=== PATIENT | female | born 1940 | race Caucasian/White ===

== ENCOUNTER 2022-03-16 17:15 | Emergency (ER) | payer MEDICARE, SELFPAY ==
--- NOTE | ~2022-03-16 | CT_ITS ---
EXAM: CT scan of the head and cervical spine. INDICATION: Reason for Exam s/p fall TECHNIQUE: A noncontrast CT scan was performed from the skull base to the vertex. A noncontrast CT scan of the cervical spine was performed from the base of the skull through T1 at 2.5 mm and 1.25 mm collimation. Coronal and sagittal reformats were obtained at the acquisition workstation. This CT examination was performed using dose optimization techniques as appropriate, variously including the following: *Automated exposure control *Adjustment of mA and/or kV according to patient size (this includes techniques or standardized protocols for targeted exams where dose is matched to indication/reason for exam; i.e. extremities or head) *Use of iterative reconstruction technique DLP: 656 and 341 mGy-cm COMPARISON: None FINDINGS: Head: There is no evidence of acute intracranial hemorrhage or territorial infarction. Tai-white matter differentiation is preserved. No abnormal mass effect or midline shift. No extra-axial fluid collections. No abnormal attenuation is demonstrated within the brain parenchyma. Scattered periventricular and deep white matter hypodensities consistent with microangiopathy. The ventricles and sulcal spaces are proportional without hydrocephalus. Proportional prominence of the ventricles and sulcal spaces. No acute osseous or soft tissue abnormalities. The mastoid air cells and visualized portions of the paranasal sinuses are well aerated. Cervical Spine: Motion degradation limits assessment particularly at the C1-C2 level. No gross deformity. Moderately severe spondylosis throughout most notable at C5-C4-C5 C5-C6 where there is severe disc space narrowing. Sclerotic focus left aspect of the vertebral body of C4 most consistent with a bone island. Straightening of the normal cervical lordosis. Otherwise, there is anatomic alignment of the vertebral bodies and posterior elements. No evidence of acute fracture or subluxation. The There is no prevertebral soft tissue swelling. The thyroid gland and remaining cervical soft tissues are normal in appearance. The lung apices demonstrate no abnormalities. CT/CT cervical spine wo con IMPRESSION: No acute intracranial pathology. Limited imaging cervical spine without any gross fracture subluxation. Chronic findings as above.
[2022-03-16 17:41] VITALS: BP 142/84; PULSE 92; O2SAT 97
--- NOTE | 2022-03-16 17:42 | ED.FALL ---
HPI - Fall General Chief Complaint: Fall Stated Complaint: FALL Time Seen by Provider: 03/16/22 17:37 Source: patient and EMS Mode of arrival: EMS Limitations: no limitations History of Present Illness HPI Narrative: Patient with history of hypertension diabetes brought by EMS after mechanical fall. [place] , said that her shoe got stuck and she fell forward hitting her chin and forehead to the ground. No loss of consciousness there were 2 witnesses at the scene also confirm that. Patient did not try to break her fall with hands or anything just hit the head straight patient denies any chest pain or palpitation did not fall for a while no loss of consciousness no seizures patient was able to stand up and ambulate Related Data Allergies Allergy/AdvReac Type Severity Reaction Status Date / Time [id number] Reductase Allergy Unknown Verified 03/16/22 17:43 Inhibitor Review of Systems Review of Systems: Yes all other systems are reviewed and are negative FORMERLY [facility], [facility] Social History Social History Advance Directives: No Advance Directives Information Provided: No Physical Exam Vital Signs: Vital Signs: Last Vital Signs Temp 97.9 F 03/16/22 17:45 Pulse 67 03/16/22 17:45 Resp 18 03/16/22 17:45 BP 141/70 H 03/16/22 17:45 Pulse Ox 95 03/16/22 17:45 O2 Del Method 03/16/22 17:45 BMI result Body Mass Index 30.9 Appearance: Alert. Oriented X3. No acute distress. Eyes: PERRLA, No Nystagmus ENT: Pharynx normal. Oral Mucosa moist bruised chin and forehead, normocephalic Neck: Normal inspection. Neck supple. In cervical collar CVS: Normal heart rate and rhythm. Pulses normal. Respiratory: No respiratory distress. Equal air entry bilateral, no wheezing/rales/rhonchi Abdomen: Soft and nontender. Bowel sounds are present, no mass palpable, no CVA tenderness Skin: Skin warm and dry. Normal skin color. Normal skin turgor. Extremities: No lower extremity edema. No calf tenderness, hips Non tender Neuro: Oriented X 3. No motor deficit. No sensory deficit.No cerebellar signs , cranial nerves II-XII intact MDM - Fall MDM Narrative Medical decision making narrative: Patient status post mechanical fall CT scan of the head C-spine negative for acute patient ambulate in the ER family at the bedside discharge patient home Lab Data Attestation: I reviewed the patient's lab results. Result diagrams: 03/16/22 18:55 03/16/22 18:55 Labs: Lab Results 03/16/22 03/16/22 03/16/22 Range/Units 18:55 18:55 18:55 WBC 6.3 (4.8-10.8) X10*3/uL RBC 3.92 L (4.20-5.50) X10*6/uL Hgb 11.7 L (12.0-16.0) g/dl Hct 34.7 L (37.0-47.0) % MCV 88.5 (80.0-98.0) fL MCH 29.8 (27.0-33.0) pg MCHC 33.7 (31.0-35.0) g/dl RDW 14.1 (11.0-16.0) % Plt Count 121 L (160-400) X10*3/uL MPV 11.9 (9.4-12.3) fL Immature Gran % (Auto) 0.3 (0.0-0.4) % Neut % (Auto) 69.7 (45-73) % Lymph % (Auto) 21.8 (20-40) % [place] % (Auto) 6.0 (2-11) % Eos % (Auto) 1.9 (0-4) % Baso % (Auto) 0.3 (0-2) % Lymph # (Auto) 1.4 (1.2-4.9) X10*3/uL [place] # (Auto) 0.4 (0.1-1.2) X10*3/uL Eos # (Auto) 0.1 (0.0-0.4) X10*3/uL Baso # (Auto) 0.0 (0.0-0.2) X10*3/uL Abs Immat Gran (auto) 0.02 (0.00-0.03) X10*3/uL Absolute Neuts (auto) 4.4 (2.0-8.3) x10*3/uL Absolute Nucleated RBC 0.000 (0.0-0.012) X10*3/uL Nucleated RBC % (auto) 0.0 (0.0-0.2) /100WBC PT 11.2 (10.0-13.1) SEC INR 1.0 (0.9-1.1) Sodium 144 (135-145) mmol/L Potassium 3.9 (3.3-5.1) mmol/L Chloride 109 H (96-108) mmol/L Carbon Dioxide 25 (22-29) mmol/L Anion Gap 14 (12-20) BUN 25 H (9-16) mg/dL Creatinine 1.03 (0.5-1.4) mg/dL Estim Creat Clear Calc 39.6 Estimated GFR 51 Random Glucose 110 (60-115) mg/dL Calcium 9.5 (8.4-10.2) mg/dL Total Bilirubin 0.2 (0.0-1.0) mg/dL AST 20 (5-31) U/L ALT 17 (0-31) U/L Alkaline Phosphatase 71 (39-117) U/L Troponin I High Sens (<3.5-17.0) ng/L Total Protein 5.8 L (6.5-8.0) g/dL Albumin 3.6 (3.5-5.0) g/dL 03/16/22 Range/Units 18:55 WBC (4.8-10.8) X10*3/uL RBC (4.20-5.50) X10*6/uL Hgb (12.0-16.0) g/dl Hct (37.0-47.0) % MCV (80.0-98.0) fL MCH (27.0-33.0) pg MCHC (31.0-35.0) g/dl RDW (11.0-16.0) % Plt Count (160-400) X10*3/uL MPV (9.4-12.3) fL Immature Gran % (Auto) (0.0-0.4) % Neut % (Auto) (45-73) % Lymph % (Auto) (20-40) % [place] % (Auto) (2-11) % Eos % (Auto) (0-4) % Baso % (Auto) (0-2) % Lymph # (Auto) (1.2-4.9) X10*3/uL [place] # (Auto) (0.1-1.2) X10*3/uL Eos # (Auto) (0.0-0.4) X10*3/uL Baso # (Auto) (0.0-0.2) X10*3/uL Abs Immat Gran (auto) (0.00-0.03) X10*3/uL Absolute Neuts (auto) (2.0-8.3) x10*3/uL Absolute Nucleated RBC (0.0-0.012) X10*3/uL Nucleated RBC % (auto) (0.0-0.2) /100WBC PT (10.0-13.1) SEC INR (0.9-1.1) Sodium (135-145) mmol/L Potassium (3.3-5.1) mmol/L Chloride (96-108) mmol/L Carbon Dioxide (22-29) mmol/L Anion Gap (12-20) BUN (9-16) mg/dL Creatinine (0.5-1.4) mg/dL Estim Creat Clear Calc Estimated GFR Random Glucose (60-115) mg/dL Calcium (8.4-10.2) mg/dL Total Bilirubin (0.0-1.0) mg/dL AST (5-31) U/L ALT (0-31) U/L Alkaline Phosphatase (39-117) U/L Troponin I High Sens < 3.5 (<3.5-17.0) ng/L Total Protein (6.5-8.0) g/dL Albumin (3.5-5.0) g/dL ECG Data Attestation: I personally reviewed and interpreted this ECG as follows: Interpretation: sinus bradycardia with heart rate 57 beats per minute left axis deviation, no acute ST T wave changes no acute ischemia Discharge Plan Discharge Clinical Impression: Fall Patient Disposition: Home, Self-Care Instructions: Fall Prevention for Older Adults (ED) Additional Instructions: Local care advised Use cane as needed for ambulation Follow with PCP Interventions: ED Discharge Assessment Last Done: 03/16/22 20:11 Discharge Date/Time: 03/16/22 20:11
--- NOTE | 2022-03-16 17:43 | ECG_ITS ---
Test Reason : ?syncope Blood Pressure : / mmHG Vent. Rate : 057 BPM Atrial Rate : 057 BPM P-R Int : 178 ms QRS Dur : 088 ms QT Int : 440 ms P-R-T Axes : 062 -34 029 degrees QTc Int : 428 ms Sinus bradycardia with sinus arrhythmia Left axis deviation Minimal voltage criteria for LVH, may be normal variant ( R in aVL ) Possible Anterolateral infarct , age undetermined Abnormal ECG No previous ECGs available Referred By: Zeferino Chapman Electronically Signed By:JOSHUA MICHELE
[2022-03-16 17:45] VITALS: BP 141/70; PULSE 67; RESP 18; TEMP 36.6; O2SAT 95; BMI 30.9
[2022-03-16 19:07] LABS: PLT CLUMP 1; SCAN SMEAR FLAG 1
[2022-03-16 19:09] LABS: Basophils Percent Auto 0.3 % (0-2); Eosinophils Absolute Auto 0.1 X10*3/uL (0.0-0.4); Eosinophils Percent Auto 1.9 % (0-4); Hematocrit 34.7 % (37.0-47.0); Hemoglobin 11.7 g/dl (12.0-16.0); Imm Gran Abs Auto 0.02 X10*3/uL (0.00-0.03); Imm Gran Pct Auto 0.3 % (0.0-0.4); Lymphocytes Absolute Auto 1.4 X10*3/uL (1.2-4.9); Lymphocytes Percent Auto 21.8 % (20-40); Mean Corpuscular HGB Conc 33.7 g/dl (31.0-35.0); Mean Corpuscular Hemoglobin 29.8 pg (27.0-33.0); Mean Corpuscular Volume 88.5 fL (80.0-98.0); Mean Platelet Volume 11.9 fL (9.4-12.3); Monocytes Absolute Auto 0.4 X10*3/uL (0.1-1.2); Neutrophils Absolute Auto 4.4 x10*3/uL (2.0-8.3); Neutrophils Percent Auto 69.7 % (45-73); Red Blood Count 3.92 X10*6/uL (4.20-5.50); Red Cell Distribution Width 14.1 % (11.0-16.0)
[2022-03-16 19:10] LABS: MANUAL DIFF FLAG NO; Platelet Count 121 X10*3/uL (160-400); White Blood Count 6.3 X10*3/uL (4.8-10.8)
[2022-03-16 19:11] LABS: Prothrombin Time 11.2 SEC (10.0-13.1)
[2022-03-16 19:21] LABS: Alanine Aminotransferase 17 U/L (0-31); Albumin Level 3.6 g/dL (3.5-5.0); Alkaline Phosphatase 71 U/L (39-117); Anion Gap 14 (12-20); Aspartate Amino Transferase 20 U/L (5-31); Bilirubin Total 0.2 mg/dL (0.0-1.0); Blood Urea Nitrogen 25 mg/dL (9-16); Calcium 9.5 mg/dL (8.4-10.2); Carbon Dioxide 25 mmol/L (22-29); Chloride 109 mmol/L (96-108); Creatinine Clr Calc Pharmacy 39.6; Estimated Glomerular Filt Rate 51; Glucose Random 110 mg/dL (60-115); Potassium 3.9 mmol/L (3.3-5.1); Sodium 144 mmol/L (135-145); Total Protein 5.8 g/dL (6.5-8.0)
[2022-03-16 19:28] LABS: Troponin-I High Sensitivity < 3.5 ng/L (<3.5-17.0)
== END 2022-03-16 20:11 | disposition home or self-care (01) ==
LOC: HO.ED 20:10
PROVIDERS: Emergency Provider Internal Medicine
DX: R00.1 Bradycardia, unspecified (principal); R51.9 Headache, unspecified; M54.2 Cervicalgia; Z79.899 Other long term (current) drug therapy
CPT/HCPCS: 36415; 70450; 72125; 80053; 84484; 85025; 85610; 93005; 99283; 99284

== ENCOUNTER 2023-02-16 10:14 | Outpatient (REF) | payer MEDICARE, SELFPAY ==
--- NOTE | ~2023-02-16 | US_ITS ---
EXAMINATION: US RETROPERITONEAL LIMITED (RENAL ONLY) CLINICAL INFORMATION: Chronic kidney disease, stage 3b. Cystic kidney disease. Renal osteodystrophy. COMPARISON: None available. TECHNIQUE: Real-time imaging of the kidneys. Visualization limited due to extremely large size of bilateral kidneys beyond ultrasound field of view, bowel gas, and innumerable renal cysts. FINDINGS: RIGHT KIDNEY: 18.5 x 7.8 x 7.1 cm (SAG x AP x TRV). Visualization limited due to extremely large size of bilateral kidneys, bowel gas, and innumerable renal cysts. No renal calculi appreciated. LEFT KIDNEY: 18.5 x 7.7 x 7.3 cm (SAG x AP x TRV). Visualization limited due to extremely large size of bilateral kidneys, bowel gas, and innumerable renal cysts. No renal calculi appreciated. US/US renal BI IMPRESSION: 1. Visualization limited due to extremely large size of bilateral kidneys, bowel gas, and innumerable renal cysts. The largest of the bilateral renal cysts have benign features, however, smaller cysts are difficult to characterize due to limited visualization. 2. No renal calculi appreciated. 3. CT scan should be considered for better visualization.
== END 2023-02-16 10:15 | disposition home or self-care (01) ==
LOC: HO.US 10:14
PROVIDERS: PCP Physician Assistant Medical; Visit Provider Internal Medicine Nephrology
DX: N18.32 Chronic kidney disease, stage 3b (principal); N25.0 Renal osteodystrophy; Q61.9 Cystic kidney disease, unspecified
CPT/HCPCS: 76775